=== PATIENT | male | born 1955 | race American Indian/Alaskan Native ===

== ENCOUNTER 2018-04-24 13:33 | Emergency (ER) | payer OTHER ==
--- NOTE | 2018-04-24 14:08 | Emergency Department Report ---
Blank Doc - Documentation Documentation: This is a 62-year-old male that presents with right testicular pain and swelli ng. Denies any urinary symptoms. This initial assessment/diagnostic orders/clinical plan/treatment(s) is/are subject to change based on patient's health status, clinical progression and re-assessment by fellow clinical providers in the ED. Further treatment and workup at subsequent clinical providers discretion. Patient/guardians urged not to elope from the ED as their condition may be serious if not clinically assessed and managed. Initial orders include: 1- Patient sent to [facility] for further evaluation and treatment 2- Doppler US 3- UA
[2018-04-24 14:48] LABS: Bacteria,Urine 4+ /HPF (Negative); Bilirubin,Urine NEG (Negative); Blood,Urine NEG (Negative); Color,Urine Yellow (Yellow); Mucus,Urine FEW /HPF; Protein,Urine <15 mg/dL mg/dL (Negative); Urobilinogen,Urine < 2.0 mg/dL (<2.0)
[2018-04-24 15:00] LABS: WBC,Urine > 182.0 /HPF (0.0-6.0)
--- NOTE | 2018-04-24 15:31 | Ultrasound Report ---
ULTRASOUND TESTICULAR DOPPLER COMPLETE History: Right testicular pain and swelling. Technique: Trans-scrotal ultrasound with spectral doppler interrogation. Findings: Both testes and epididymides are normal size, contour and echotexture. No mass or pathologic calcifications. There is a complex, septated hydrocele on the right side of the scrotal sac measuring up to 5.4 x 3.4 x 4.9 cm. No left hydrocele. No varicocele. Doppler interrogation depicts symmetric arterial flow to both testes. IMPRESSION: Complex right hydrocele as described.
--- NOTE | 2018-04-24 18:41 | Emergency Department Report ---
ED Male HPI - General Chief complaint: Urogenital-Male Stated complaint: GROIN PAIN Time Seen by Provider: 04/24/18 14:07 Source: patient Mode of arrival: Ambulatory Limitations: No Limitations - History of Present Illness Initial comments: This is a 62-year-old -[place] male that presents with right testicle pain and swelling. [place]. When he got off work Tuesday he noticed pain to right groin. Patient states he increase fluid intake and thought it would improve symptoms. Ye he noticed swelling to right testicle and increased pain. He denies urinary frequency, urgency, dysuria, penile discharge, or fever. MD Complaint: testicle pain (right), testicle swelling (right) Onset/Timin -: days(s) Location: right testicle Radiation: none Severity: moderate Severity scale (0 -10): 8 Quality: aching Consistency: constant Improves with: none Worsens with: movement, other (sitting) denies other symptoms - Related Data Sexually active: Yes Previous Rx's Medication Instructions Recorded Last Taken Type Cyclobenzaprine [Flexeril] 10 mg PO PRN #15 tablet 01/28/16 Unknown Rx Ibuprofen [Motrin] 800 mg PO Q8HR PRN #30 tablet 01/28/16 Unknown Rx Sulfamethoxazole/Trimethoprim 1 each PO BID #20 tablet 04/24/18 Unknown Rx [Bactrim DS TAB] Allergies Allergy/AdvReac Type Severity Reaction Status Date / Time No Known Allergies Allergy Unverified 01/28/16 18:05 ED Review of Systems ROS: Stated complaint: GROIN PAIN Other details as noted in HPI Constitutional: denies: chills, fever Respiratory: denies: cough, shortness of breath, wheezing Cardiovascular: denies: chest pain, palpitations Gastrointestinal: denies: abdominal pain, nausea, diarrhea Genitourinary: testicular pain (right ). denies: urgency, dysuria, frequency, hematuria, discharge, testicular mass Skin: denies: rash, lesions Neurological: denies: headache, weakness, paresthesias Psychiatric: denies: anxiety, depression ED Past Medical Hx - Past Medical History Previous Medical History?: No - Surgical History Past Surgical History?: No - Social History Smoking Status: Never Smoker Substance Use Type: None - Medications Home Medications: Home Medications Medication Instructions Recorded Confirmed Last Taken Type Cyclobenzaprine [Flexeril] 10 mg PO PRN #15 tablet 01/28/16 Unknown Rx Ibuprofen [Motrin] 800 mg PO Q8HR PRN #30 tablet 01/28/16 Unknown Rx Sulfamethoxazole/Trimethoprim 1 each PO BID #20 tablet 04/24/18 Unknown Rx [Bactrim DS TAB] ED Physical Exam - General Limitations: No Limitations General appearance: alert, in no apparent distress - Respiratory Respiratory exam: Present: normal lung sounds bilaterally. Absent: respiratory distress - Cardiovascular Cardiovascular Exam: Present: regular rate, normal rhythm. Absent: systolic murmur, diastolic murmur, rubs, gallop - GI/Abdominal GI/Abdominal exam: Present: soft, normal bowel sounds - exam: Present: testicular tenderness (right), scrotal swelling. Absent: urethral discharge, vertical testicular lie, circumcision External exam: Present: normal external exam - Neurological Exam Neurological exam: Present: alert, oriented X3 - Psychiatric Psychiatric exam: Present: normal affect, normal mood - Skin Skin exam: Present: warm, dry, intact, normal color. Absent: rash ED Course Vital Signs 04/24/18 14:07 Temperature 98.6 F Pulse Rate 85 Respiratory 18 Rate Blood Pressure 122/75 O2 Sat by Pulse 98 Oximetry ED Medical Decision Making - Lab Data Result diagrams: 04/24/18 19:21 Lab Results 04/24/18 04/24/18 Range/Units 14:22 19:21 WBC 8.3 (4.5-11.0) K/mm3 RBC 4.59 (3.65-5.03) M/mm3 Hgb 15.3 H (11.8-15.2) gm/dl Hct 44.0 (35.5-45.6) % MCV 96 H (84-94) fl MCH 33 H (28-32) pg MCHC 35 H (32-34) % RDW 13.0 L (13.2-15.2) % Plt Count 377 (140-440) K/mm3 Lymph % (Auto) 27.5 (13.4-35.0) % [place] % (Auto) 9.6 H (0.0-7.3) % Eos % (Auto) 1.0 (0.0-4.3) % Baso % (Auto) 0.5 (0.0-1.8) % Lymph # 2.3 (1.2-5.4) K/mm3 [place] # 0.8 (0.0-0.8) K/mm3 Eos # 0.1 (0.0-0.4) K/mm3 Baso # 0.0 (0.0-0.1) K/mm3 Seg Neutrophils % 61.4 (40.0-70.0) % Seg Neutrophils # 5.1 (1.8-7.7) K/mm3 Urine Color Yellow (Yellow) Urine Turbidity Cloudy (Clear) Urine pH 5.0 (5.0-7.0) Ur Specific [place] 1.009 (1.003-1.030) Urine Protein <15 mg/dl (Negative) mg/dL Urine Glucose (UA) Neg (Negative) mg/dL Urine Ketones Neg (Negative) mg/dL Urine Blood Neg (Negative) Urine Nitrite Neg (Negative) Urine Bilirubin Neg (Negative) Urine Urobilinogen < 2.0 (<2.0) mg/dL Ur Leukocyte Esterase Lg (Negative) Urine WBC (Auto) > 182.0 H (0.0-6.0) /HPF Urine RBC (Auto) 11.0 (0.0-6.0) /HPF U Epithel Cells (Auto) < 1.0 (0-13.0) /HPF Urine Bacteria (Auto) 4+ (Negative) /HPF Urine WBC Clumps 2+ /HPF Ur Transition Epith Cell 1 /HPF Urine Mucus Few /HPF - Radiology Data Radiology results: report reviewed ULTRASOUND TESTICULAR DOPPLER COMPLETE History: Right testicular pain and swelling. Technique: Trans-scrotal ultrasound with spectral doppler interrogation. Findings: Both testes and epididymides are normal size, contour and echotexture. No mass or pathologic calcifications. There is a complex, septated hydrocele on the right side of the scrotal sac measuring up to 5.4 x 3.4 x 4.9 cm. No left hydrocele. No varicocele. Doppler interrogation depicts symmetric arterial flow to both testes. IMPRESSION: Complex right hydrocele as described. - Medical Decision Making Patient was examined by me. Vitals are normal and patient is in no acute distress. Obtained a testicular ultrasound, CBC, & UA. Ultrasound dictated by radiologist and report reviewed by myself. Complex right hydrocele as described. A large amount of leukocyte Estrace and elevated WBC use. Consulted Dr. Chopra urology who advised to start patient on antibiotics and follow-up in office outpatient. Patient given Rocephin 500 mg IM while in the ER. Patient informed of results. Start bactrim DS 1 tab by mouth twice a day 10 days for suspected UTI. Plan discussed with patient to discharge home and treat outpatient. He agrees with ER plan. Patient discharged home in stable condition. Follow up with PCP in 2-3 days. Critical care attestation.: If time is entered above; I have spent that time in minutes in the direct care of this critically ill patient, excluding procedure time. ED Disposition Clinical Impression: Testicular swelling, right, Hydrocele in adult, UTI (urinary tract infection), bacterial Disposition: - TO HOME OR SELFCARE Is pt being admited?: No Does the pt Need Aspirin: No Condition: Undetermined Instructions: Hydrocele (ED), Urinary Tract Infection in Men (ED) Additional Instructions: Increase fluid intake to 1L to 2L daily. Complete full course of antibiotics as prescribed. Avoid drinking alcohol while taking antibiotics and for 24 hours after completion. Follow up with primary care provider in 2-3 days. Prescriptions: Sulfamethoxazole/Trimethoprim [Bactrim DS TAB] 1 each PO BID #20 tablet Referrals: SAPPHIRE OSORIO MD [Primary Care Provider] - 3-5 Days HUNTER CHOPRA MD [Staff Physician] - 3-5 Days Forms: Work/School Release Form(ED) Time of Disposition: 20:12
[2018-04-24 19:33] LABS: Basophils % (Auto) 0.5 % (0.0-1.8); Eosinophils # (Auto) 0.1 K/mm3 (0.0-0.4); Hemoglobin 15.3 gm/dl (11.8-15.2); Lymphocytes # (Auto) 2.3 K/mm3 (1.2-5.4); Lymphocytes % (Auto) 27.5 % (13.4-35.0); Mean Corpuscular HGB Conc 35 % (32-34); Mean Corpuscular Volume 96 fl (84-94); Monocytes # (Auto) 0.8 K/mm3 (0.0-0.8); Monocytes % (Auto) 9.6 % (0.0-7.3); Platelet Count 377 K/mm3 (140-440); Red Blood Count 4.59 M/mm3 (3.65-5.03)
[2018-04-24] MEDS ORDERED: ROCEPHIN IM ONE (20:03)
[2018-04-24] MEDS ORDERED: XYLOCAINE 1% MPF 5 mL INFILTRATI ONE (20:03)
[2018-04-24] MEDS ORDERED: ZITHROMAX PO ONE (20:09)
[2018-04-24 21:03] VITALS: BP 120/70
== END 2018-04-24 21:15 | disposition home or self-care (01) ==
LOC: ED 13:33
DX: N50.89 Other specified disorders of the male genital organs (principal); N43.3 Hydrocele, unspecified; N39.0 Urinary tract infection, site not specified
CPT/HCPCS: 36415; 81001; 85025; 93975; 96372; 99284; J0696

== ENCOUNTER 2018-07-03 18:31 | Emergency (ER) | payer OTHER ==
--- NOTE | 2018-07-03 18:36 | Emergency Department Report ---
Blank Doc - Documentation Documentation: This is a 62-year-old male that presents with URI symptoms. Fever and tachy in triage. This initial assessment/diagnostic orders/clinical plan/treatment(s) is/are subject to change based on patient's health status, clinical progression and re- assessment by fellow clinical providers in the ED. Further treatment and workup at subsequent clinical providers discretion. Patient/guardians urged not to elope from the ED as their condition may be serious if not clinically assessed and managed. Initial orders include: 1- Patient sent to MAIN ED for further evaluation and treatment. 2- code sepsis initiated 3- labs 4- fluids and tyl
[2018-07-03] MEDS ORDERED: TYLENOL ONE (18:39)
[2018-07-03] MEDS ORDERED: NACL 0.9% 1000 ML IV ONE (18:51)
[2018-07-03 19:06] LABS: Basophils # (Auto) 0.1 K/mm3 (0.0-0.1); Basophils % (Auto) 0.6 % (0.0-1.8); Hematocrit 45.2 % (35.5-45.6); Hemoglobin 15.8 gm/dl (11.8-15.2); Lymphocytes % (Auto) 10.7 % (13.4-35.0); Mean Corpuscular HGB Conc 35 % (32-34); Mean Corpuscular Volume 97 fl (84-94); Monocytes # (Auto) 0.4 K/mm3 (0.0-0.8); Monocytes % (Auto) 4.2 % (0.0-7.3); Platelet Count 192 K/mm3 (140-440); Red Blood Count 4.64 M/mm3 (3.65-5.03); Red Cell Distribution Width 13.6 % (13.2-15.2)
[2018-07-03 19:26] LABS: Alanine Aminotransferase 25 units/L (7-56); Albumin 3.9 g/dL (3.9-5); BUN/Creatinine Ratio 11; Blood Urea Nitrogen 15 mg/dL (9-20); Calcium 9.1 mg/dL (8.4-10.2); Hemolysis Index 2
[2018-07-03] MEDS ORDERED: TYLENOL PO ONE (19:40)
[2018-07-03] MEDS ORDERED: ROCEPHIN/NS 1 GM/50 ML 1 GM/50 ML BAG IV ONE (21:21)
[2018-07-03] MEDS ORDERED: TESSALON PERLES PO ONE (21:21)
[2018-07-03] MEDS ORDERED: TORADOL IV ONE (21:21)
[2018-07-03] MEDS ORDERED: ZITHROMAX 500 MG in NACL 0.9% 250ML 250 ML IV ONE (21:21)
[2018-07-03] MEDS ORDERED: NACL 0.9% 1000 ML 3,000 ML ONE (21:34)
--- NOTE | 2018-07-03 21:54 | Emergency Department Report ---
ED Fever HPI - General Stated Complaint: DIZZY/TEMP/COUGH Time Seen by Provider: 07/03/18 18:35 Source: patient Exam Limitations: no limitations - History of Present Illness Initial Comments: 62-year-old male with no significant past medical history presents to the hospital complaining of cough and fever for the past 3 days. Cough is productive of sputum. Chest pain related to coughing. Patient denies sick contacts. Patient returned from [place] one week ago after a four-day visit. Denies calf tenderness, leg edema, or hemoptysis. He denies shortness of breath or wheezing. ED Review of Systems ROS: Stated complaint: DIZZY/TEMP/COUGH Other details as noted in HPI Comment: All other systems reviewed and negative ED Past Medical Hx - Past Medical History Previous Medical History?: No - Surgical History Past Surgical History?: No - Social History Smoking Status: Never Smoker Substance Use Type: None - Medications Home Medications: Home Medications Medication Instructions Recorded Confirmed Last Taken Type Cyclobenzaprine [Flexeril] 10 mg PO PRN #15 tablet 01/28/16 Unknown Rx Ibuprofen [Motrin] 800 mg PO Q8HR PRN #30 tablet 01/28/16 Unknown Rx Sulfamethoxazole/Trimethoprim 1 each PO BID #20 tablet 04/24/18 Unknown Rx [Bactrim DS TAB] Doxycycline Monohydrate 100 mg PO BID #14 capsule 07/04/18 Unknown Rx [Doxycycline Monohydrate CAP] guaiFENesin/DEXTROMETHORPHAN 1 each PO BID PRN #20 tab.er.12h 07/04/18 Unknown Rx [Mucinex Dm ER 1,200-60 mg Tab] ED Physical Exam - Other Other exam information: General: No limitations, patient is alert in no acute distress Head exam: Atraumatic, normocephalic Eyes exam: Normal appearance, pupils equal reactive to light, extraocular movements intact ENT: Moist mucous membrane, normal oropharynx Neck exam: Normal inspection, full range of motion, no meningismus nontender Respiratory exam: Equal breath sounds bilaterally, intermittent crackle, frequent cough Cardiovascular: Normal rate and rhythm, normal heart sounds Abdomen: Soft, nondistended, and nontender, with normal bowel sounds, no rebound, or guarding Extremity: Full range of motion normal inspection no deformity, no calf tenderness or leg edema Neurologic: Alert, oriented x3, cranial nerves intact, no motor or sensory deficit Psychiatric: normal affect, normal mood Skin: Warm, dry, intact ED Course Vital Signs 07/03/18 07/03/18 07/03/18 18:41 19:40 20:40 Temperature 102.9 F H Pulse Rate 107 H Respiratory 24 18 18 Rate Blood Pressure 124/69 Blood Pressure [Left] O2 Sat by Pulse 89 Oximetry 07/03/18 07/03/18 07/04/18 22:11 22:26 00:34 Temperature 97.9 F 98.2 F Pulse Rate 81 75 Respiratory 19 21 19 Rate Blood Pressure Blood Pressure 110/72 105/67 [Left] O2 Sat by Pulse 94 95 95 Oximetry ED Medical Decision Making - Lab Data Result diagrams: 07/03/18 18:42 07/03/18 18:42 Lab Results 07/03/18 07/03/18 07/03/18 Range/Units 18:42 18:42 18:42 WBC 9.0 (4.5-11.0) K/mm3 RBC 4.64 (3.65-5.03) M/mm3 Hgb 15.8 H (11.8-15.2) gm/dl Hct 45.2 (35.5-45.6) % MCV 97 H (84-94) fl MCH 34 H (28-32) pg MCHC 35 H (32-34) % RDW 13.6 (13.2-15.2) % Plt Count 192 (140-440) K/mm3 Lymph % (Auto) 10.7 L (13.4-35.0) % [place] % (Auto) 4.2 (0.0-7.3) % Eos % (Auto) 0.0 (0.0-4.3) % Baso % (Auto) 0.6 (0.0-1.8) % Lymph # 1.0 L (1.2-5.4) K/mm3 [place] # 0.4 (0.0-0.8) K/mm3 Eos # 0.0 (0.0-0.4) K/mm3 Baso # 0.1 (0.0-0.1) K/mm3 Seg Neutrophils % 84.5 H (40.0-70.0) % Seg Neutrophils # 7.6 (1.8-7.7) K/mm3 Sodium 132 L (137-145) mmol/L Potassium 4.6 (3.6-5.0) mmol/L Chloride 93.5 L (98-107) mmol/L Carbon Dioxide 26 (22-30) mmol/L Anion Gap 17 mmol/L BUN 15 (9-20) mg/dL Creatinine 1.4 (0.8-1.5) mg/dL Estimated GFR > 60 ml/min BUN/Creatinine Ratio 11 % Glucose 123 H (75-100) mg/dL Lactic Acid 2.10 H* (0.7-2.0) mmol/L Calcium 9.1 (8.4-10.2) mg/dL Total Bilirubin 1.10 (0.1-1.2) mg/dL AST 28 (5-40) units/L ALT 25 (7-56) units/L Alkaline Phosphatase 94 (35-129) units/L Total Protein 8.4 H (6.3-8.2) g/dL Albumin 3.9 (3.9-5) g/dL Albumin/Globulin Ratio 0.9 % Urine Color (Yellow) Urine Turbidity (Clear) Urine pH (5.0-7.0) Ur Specific [place] (1.003-1.030) Urine Protein (Negative) mg/dL Urine Glucose (UA) (Negative) mg/dL Urine Ketones (Negative) mg/dL Urine Blood (Negative) Urine Nitrite (Negative) Urine Bilirubin (Negative) Urine Urobilinogen (<2.0) mg/dL Ur Leukocyte Esterase (Negative) Urine WBC (Auto) (0.0-6.0) /HPF Urine RBC (Auto) (0.0-6.0) /HPF U Epithel Cells (Auto) (0-13.0) /HPF Urine Mucus /HPF 07/03/18 07/03/18 07/03/18 Range/Units 22:30 22:32 23:28 WBC (4.5-11.0) K/mm3 RBC (3.65-5.03) M/mm3 Hgb (11.8-15.2) gm/dl Hct (35.5-45.6) % MCV (84-94) fl MCH (28-32) pg MCHC (32-34) % RDW (13.2-15.2) % Plt Count (140-440) K/mm3 Lymph % (Auto) (13.4-35.0) % [place] % (Auto) (0.0-7.3) % Eos % (Auto) (0.0-4.3) % Baso % (Auto) (0.0-1.8) % Lymph # (1.2-5.4) K/mm3 [place] # (0.0-0.8) K/mm3 Eos # (0.0-0.4) K/mm3 Baso # (0.0-0.1) K/mm3 Seg Neutrophils % (40.0-70.0) % Seg Neutrophils # (1.8-7.7) K/mm3 Sodium (137-145) mmol/L Potassium (3.6-5.0) mmol/L Chloride (98-107) mmol/L Carbon Dioxide (22-30) mmol/L Anion Gap mmol/L BUN (9-20) mg/dL Creatinine (0.8-1.5) mg/dL Estimated GFR ml/min BUN/Creatinine Ratio % Glucose (75-100) mg/dL Lactic Acid 1.90 1.30 (0.7-2.0) mmol/L Calcium (8.4-10.2) mg/dL Total Bilirubin (0.1-1.2) mg/dL AST (5-40) units/L ALT (7-56) units/L Alkaline Phosphatase (35-129) units/L Total Protein (6.3-8.2) g/dL Albumin (3.9-5) g/dL Albumin/Globulin Ratio % Urine Color Yellow (Yellow) Urine Turbidity Clear (Clear) Urine pH 6.0 (5.0-7.0) Ur Specific [place] 1.017 (1.003-1.030) Urine Protein 30 mg/dl (Negative) mg/dL Urine Glucose (UA) Neg (Negative) mg/dL Urine Ketones Tr (Negative) mg/dL Urine Blood Sm (Negative) Urine Nitrite Neg (Negative) Urine Bilirubin Neg (Negative) Urine Urobilinogen < 2.0 (<2.0) mg/dL Ur Leukocyte Esterase Neg (Negative) Urine WBC (Auto) 1.0 (0.0-6.0) /HPF Urine RBC (Auto) 2.0 (0.0-6.0) /HPF U Epithel Cells (Auto) < 1.0 (0-13.0) /HPF Urine Mucus Few /HPF - Radiology Data Radiology results: report reviewed PROCEDURE: XR CHEST ROUTINE 2V TECHNIQUE: PA and lateral chest radiographs were obtained. HISTORY: cough COMPARISONS: None. FINDINGS: There is prominence of the interstitial markings in both lungs with peribronchial thickening and the appearance of areas of bronchiectasis in the upper and mid lung workman. There are areas of pulmonary consolidation in both lung bases. There is no evidence of pneumothorax and no definite evidence of pleural effusion. The cardiac silhouette appears to be normal size. The thoracic aorta is unremarkable. The bony structures are unremarkable. There are distended air-filled loops of bowel in the upper abdomen. There is heterogeneous density projected over the left cervical and supraclavicular region. Whether or not this in or on the patient is unclear. Soft tissue emphysematous change would need to be considered. IMPRESSION: 1. Bilateral interstitial and airspace process. 2. Heterogeneous density projected over the left cervical and supraclavicular region. Soft tissue emphysematous change needs to be considered. Comparison with previous chest x- ray or CT chest is recommended for further evaluation. PROCEDURE: CT CHEST W CON TECHNIQUE: Computerized axial tomography of the chest was performed during the IV injection of iodinated nonionic contrast. HISTORY: fever, cough COMPARISONS: None . FINDINGS: The great vessels are intact. [place] right hilar lymph nodes. No pleural or pericardial effusion. No pneumothorax. Patchy bilateral pulmonary infiltrates with airspace consolidation greater in the right lung. Findings are most compatible with multilobar pneumonia. Follow- up recommended to ensure resolution and exclude underlying lesion. The right hemidiaphragm is elevated. The imaged upper abdomen is unremarkable. IMPRESSION: Findings are most compatible with multilobar pneumonia. Follow-up recommended to ensure resolution and exclude underlying lesion. Elevated right hemidiaphragm. - Medical Decision Making Patient has multilobar bilateral pneumonia but overall has a low CURB score and is a candidate for outpatient treatment. lactic acid improved no signs of septic shock - Differential Diagnosis pneumonia, viral syndrome Critical Care Time: No Critical care attestation.: If time is entered above; I have spent that time in minutes in the direct care of this critically ill patient, excluding procedure time. ED Disposition Clinical Impression: Bilateral pneumonia Disposition: [id number] TO HOME OR SELFCARE Is pt being admited?: No Does the pt Need Aspirin: No Condition: Stable Instructions: Community-acquired Pneumonia (ED) Additional Instructions: Take the medication as prescribed. Follow up with your doctor or the clinic/doctor provided. Return if symptoms worsen as indicated by your discharge instructions Prescriptions: Doxycycline Monohydrate [Doxycycline Monohydrate CAP] 100 mg PO BID #14 capsule guaiFENesin/DEXTROMETHORPHAN [Mucinex Dm ER 1,200-60 mg Tab] 1 each PO BID PRN #20 tab.er.12h PRN Reason: Cough Referrals: RAMONITA GALDAMEZ MD [Primary Care Provider] - 3-5 Days Time of Disposition: 01:46
--- NOTE | 2018-07-03 22:00 | XRay Report ---
PROCEDURE: XR CHEST ROUTINE 2V TECHNIQUE: PA and lateral chest radiographs were obtained. HISTORY: cough COMPARISONS: None. FINDINGS: There is prominence of the interstitial markings in both lungs with peribronchial thickening and the appearance of areas of bronchiectasis in the upper and mid lung workman. There are areas of pulmonary consolidation in both lung bases. There is no evidence of pneumothorax and no definite evidence of pleural effusion. The cardiac silhouette appears to be normal size. The thoracic aorta is unremarkable. The bony structures are unremarkable. There are distended air-filled loops of bowel in the upper abdomen. There is heterogeneous density projected over the left cervical and supraclavicular region. Whether o r not this in or on the patient is unclear. Soft tissue emphysematous change would need to be conside red. IMPRESSION: 1. Bilateral interstitial and airspace process. 2. Heterogeneous density projected over the left cervical and supraclavicular region. Soft tissue emp hysematous change needs to be considered. Comparison with previous chest x-ray or CT chest is recommended for further evaluation. This document is electronically signed by Ara Pérez MD., Jul 03 2018 09:58:05 PM ET
[2018-07-03 23:20] LABS: Bilirubin,Urine NEG (Negative); Blood,Urine SM (Negative); Color,Urine Yellow (Yellow); Mucus,Urine FEW /HPF; Urobilinogen,Urine < 2.0 mg/dL (<2.0)
--- NOTE | 2018-07-04 00:55 | Cat Scan Report ---
PROCEDURE: CT CHEST W CON TECHNIQUE: Computerized axial tomography of the chest was performed during the IV injection of iodin ated nonionic contrast. HISTORY: fever, cough COMPARISONS: None . FINDINGS: The great vessels are intact. [place] right hilar lymph nodes. No pleural or pericardial effusion. No pneumothorax. Patchy bilateral pulmonary infiltrates with airspace consolidation greater in the right lung. Findings are most compatible with multilobar pneumonia. Follow-up recommended to ensure resolution and exclude underlying lesion. The right hemidiaphragm is elevated. The imaged upper abdomen is unremarkable. IMPRESSION: Findings are most compatible with multilobar pneumonia. Follow-up recommended to ensure resolution and exclude underlying lesion. Elevated right hemidiaphragm. This document is electronically signed by Herve Cobb MD., Jul 04 2018 12:53:42 AM ET
[2018-07-04 02:54] VITALS: BP 114/70
== END 2018-07-04 02:52 | disposition home or self-care (01) ==
LOC: ED 18:31
DX: J18.9 Pneumonia, unspecified organism (principal)
CPT/HCPCS: 36415; 71046; 71260; 80053; 81001; 82140; 85025; 87040; 87086; 96365; 96368; 96375; 99285; J0456; J0696; J1885; J7030; J7050; Q9967